=== PATIENT | female | born 1970 | race Caucasian/White ===

== ENCOUNTER 2017-08-01 15:57 | Emergency (ER) | payer BC ==
[2017-08-01 17:16] VITALS: BP 100/66
--- NOTE | 2017-08-01 17:39 | UC ---
Throat Pain/Nasal Cuauhtemoc HPI - HPI Summary HPI Summary: 47 yo female with sore throat and malaise x 2 days low energy - History of Current Complaint Chief Complaint: UCGeneralIllness Stated Complaint: FEVER/[place] Time Seen by Provider: 08/01/17 17:18 Hx Obtained From: Patient Hx Last Menstrual Period: 07/04/17 Onset/Duration: Gradual Onset Severity: Moderate Pain Intensity: 4 Pain Scale Used: 0-10 Numeric Cough: None - Epiglottits Risk Factors Epiglottis Risk Factors: Negative - Allergies/Home Medications Allergies/Adverse Reactions: Allergies Allergy/AdvReac Type Severity Reaction Status Date / Time Tuberculin Tests Allergy Severe Dizziness Verified 08/01/17 17:16 Sulfa Antibiotics Allergy Intermediate Rash Verified 08/01/17 17:16 dust/mold Allergy Mild Congestion Uncoded 08/01/17 17:16 PMH/Surg Hx/FS Hx/Imm Hx Previously Healthy: Yes - Surgical History Surgical History: Yes Surgery Procedure, Year, and Place: R EAR SX X 1982 - Family History Known Family History: Positive: Hypertension - Social History Alcohol Use: Occasionally Substance Use Type: None Smoking Status (MU): Never Smoked Tobacco - Immunization History Most Recent Influenza Vaccination: none Review of Systems Constitutional: Fatigue Skin: Negative Eyes: Negative ENT: Sore Throat, Ear Ache Respiratory: Negative Cardiovascular: Negative Gastrointestinal: Negative Genitourinary: Negative Motor: Negative Neurovascular: Negative Musculoskeletal: Negative Neurological: Negative Psychological: Negative Is Patient Immunocompromised?: No All Other Systems Reviewed And Are Negative: Yes Physical Exam Triage Information Reviewed: Yes Appearance: Well-Appearing, No Pain Distress, Well-Nourished Vital Signs: Initial Vital Signs Temp 98.3 F 08/01/17 17:09 Pulse 75 08/01/17 17:09 Resp 16 08/01/17 17:09 BP 100/66 08/01/17 17:09 Pulse Ox 100 08/01/17 17:09 Vital Signs Reviewed: Yes Eyes: Positive: Conjunctiva Clear ENT: Positive: Hearing grossly normal, Pharynx normal, Tonsillar swelling, Tonsillar exudate Neck: Positive: Supple, Nontender, Enlarged Nodes @ - ant cervical Respiratory: Positive: Lungs clear, Normal breath sounds, No respiratory distress, No accessory muscle use Cardiovascular: Positive: RRR, No Murmur Musculoskeletal: Positive: ROM Intact, No Edema Neurological: Positive: Alert Psychological Exam: Normal Skin Exam: Normal Diagnostics - Laboratory Diagnostic Studies Completed/Ordered: strep (+) Throat Pain/Nasal Course/Dx - Differential Dx/Diagnosis Provider Diagnoses: strep throat Discharge - Discharge Plan Condition: Stable Disposition: HOME Prescriptions: Amoxicillin PO (*) [Amoxicillin 875 MG (*)] 875 mg PO BID #20 tab Patient Education Materials: Strep Throat (ED) Referrals: Carolina Price MD [Primary Care Provider] - Additional Instructions: recheck in 3-4 days if not better
== END 2017-08-01 17:44 | disposition home or self-care (01) ==
LOC: UCCORT 15:57
DX: J02.0 Streptococcal pharyngitis (principal); J30.89 Other allergic rhinitis; Z88.2 Allergy status to sulfonamides; Z88.7 Allergy status to serum and vaccine
CPT/HCPCS: 87651; 99202; G0463